=== PATIENT | female | born 1970 | race Caucasian/White ===

== ENCOUNTER 2017-09-29 11:04 | Emergency (ER) | payer SELFPAY ==
[~2017-09-29] VITALS: Ht 162.6 cm; Wt 64.0 kg
[2017-09-29 11:07] VITALS: BP 128/81; PULSE 92; RESP 16; TEMP 98; O2SAT 99
--- NOTE | 2017-09-29 14:01 | PD ---
HPI Chief Complaint: Laceration/Skin Injury Time Seen by Provider: 12:00 Travel History International Travel<30 days: No Contact w/Intl Traveler<30days: No Traveled to known affect area: No History of Present Illness HPI 47-year-old female presents emergency department for evaluation of laceration to the posterior ankle and a horizontal orientation over the Achilles tendon. Patient states it happened last night when she was carrying a garbage bag out and there was a broken glass inside the garbage bag that she believes cut her. Patient said she didn't realize she was cut for a minute. Patient is ambulatory. Left foot is neurovascularly intact. Patient denies any history of resistant infections or diabetes. Patient states she has a lot of anxiety and hates needles. Patient didn't come in last night because of this. Patient is unsure if she is up-to-date on her tetanus. Patient denies any other physiological symptoms outside the laceration. Left foot retains full range of motion with dorsi and plantar flexion. PFSH Past Medical History ?: Not Social History Alcohol Use: Yes (WINE) Tobacco Use: Yes (1/2PPD) Substance Use: No Allergies-Medications (Allergen,Severity, Reaction): Coded Allergies: morphine (Verified Allergy, Severe, SWELLING AT SITE, 09/29/17) Reported Meds & Prescriptions Reported Meds & Active Scripts Active No Active Prescriptions or Reported Medications Review of Systems Except as stated in HPI: all other systems reviewed are Neg Physical Exam Narrative GENERAL: Well-nourished, well-developed 47-year-old patient that is agitated about her wait time and anxious about the possibility of getting sutures. SKIN: 1.5 cm laceration in horizontal orientation over the left posterior aspect of the ankle over the Achilles. HEAD: Normocephalic. Atraumatic. EYES: No scleral icterus. No injection or drainage. NECK: Supple, trachea midline. No JVD or lymphadenopathy. CARDIOVASCULAR: Regular rate and rhythm without murmurs, gallops, or rubs. Pulses +2 bilaterally. RESPIRATORY: Breath sounds equal bilaterally. No accessory muscle use. GASTROINTESTINAL: Abdomen soft, non-tender, nondistended. MUSCULOSKELETAL: Full range of motion in left foot with flexion and plantar. Left foot is neurovascularly intact. No obvious deformity, erythema, ecchymosis , cyanosis, or edema. BACK: Nontender without obvious deformity. No CVA tenderness. Data Data Last Documented VS Vital Signs Date Time Temp Pulse Resp B/P (MAP) Pulse Ox O2 Delivery O2 Flow Rate FiO2 09/29/17 11:07 98.0 92 16 128/81 (97) 99 MDM Medical Decision Making Medical Screen Exam Complete: Yes Emergency Medical Condition: Yes Differential Diagnosis Differential diagnoses include but not limited to laceration, cellulitis, avulsion, abrasion Narrative Course Patient assessed and sutures were recommended with prophylactic antibiotics due to the length of time that has passed since the laceration initially occurred. Tetanus ordered. After the assessment and recommendation the patient's anxiety was heightened and the patient opted to leave AMA prior to getting her tetanus updated or laceration repair. Diagnosis Primary Impression: AMA Patient Instructions: General Instructions Departure Forms: Tests/Procedures Scripts No Active Prescriptions or Reported Meds Disposition: 07 AGAINST MEDICAL ADVICE Condition: Stable Christel Bergman Sep 29, 2017 14:01
== END 2017-09-29 13:06 | disposition left against medical advice (07) ==
LOC: PHEFT 11:04
DX: S91.012A Laceration without foreign body, left ankle, initial encounter (principal); W25.XXXA Contact with sharp glass, initial encounter; Y93.89 Activity, other specified
CPT/HCPCS: 99281